=== PATIENT | female | born 2000 | race African-American/Black ===

== ENCOUNTER 2023-02-07 01:20 | Emergency (ER) | payer SELFPAY ==
[~2023-02-07] VITALS: Ht 165.1 cm; Wt 132.5 kg
[2023-02-07 01:37] VITALS: BP 142/74; TEMP 98.4
[2023-02-07] MEDS ORDERED: IPRATROPIUM BROMIDE (0.02%) 0.5MG/2.5ML NEB HHN STA (02:49)
[2023-02-07] MEDS ORDERED: METHYLPREDNISOLONE SOD SUCC 125MG/2ML (ACT-O-VIAL) IV STA (02:49)
[2023-02-07] MEDS ORDERED: ALBUTEROL (0.083%) 2.5MG/3ML NEB HHN STA (02:49)
[2023-02-07 02:55] VITALS: PULSE 96; RESP 18; O2SAT 96
[2023-02-07 03:22] LABS: BASOPHILS % 0.4 % (0.0-2.0); DIFFERENTIAL COMMENT 0; EOSINOPHILS % 6.5 % (0.0-5.0); HEMATOCRIT. 32.7 % (36.0-48.0); HEMOGLOBIN. 9.9 g/dL (12.0-16.0); LYMPHOCYTES % 17.6 % (20.0-50.0); MEAN CORPUSCULAR HEMOGLOBIN 22.6 pg (28.0-32.0); MEAN CORPUSCULAR HGB CONC 30.3 g/dL (31.0-37.0); MEAN CORPUSCULAR VOLUME 74.3 fL (81.0-99.0); MEAN PLATELET VOLUME 7.8 fl (7.4-10.4); MONOCYTES % 7.1 % (2.0-8.0); NEUTROPHILS % 68.4 % (40.0-76.0); PLATELET 430 x1000/uL (130-400); RED CELL DISTRIBUTION WIDTH 18.9 % (11.6-14.6); WHITE BLOOD COUNT 8.9 x1000/uL (4.5-11.0)
[2023-02-07 03:31] LABS: CHLORIDE 107 mEq/L (98-107); INDEX HEMOLYSI 1 (1-3); INDEX ICTERIC 1 (1-4); INDEX LIPEMIC 1 (1-3); POTASSIUM 3.8 mEq/L (3.5-5.1); SODIUM 137 mEq/L (136-145)
[2023-02-07 03:40] LABS: ALANINE AMINOTRANSFERASE 21 IU/L (13-61); ALBUMIN 3.7 g/dL (3.4-5.0); ASPARTATE AMINOTRANSFERASE 14 IU/L (15-37); BILIRUBIN TOTAL 0.3 mg/dL (0.1-1.0); CARBON DIOXIDE 26 mEq/L (21-32); CREATININE 0.7 mg/dL (0.6-1.3); GLUCOSE 104 mg/dL (70-105); NT PRO B-TYPE NATRIURETIC PEP 7 pg/mL (5-125); PROTEIN TOTAL 8.4 g/dL (6.0-8.3); UREA NITROGEN BLOOD 4 mg/dL (7-21)
== END 2023-02-07 06:23 | disposition left against medical advice (07) ==
LOC: ER 01:20
DX: R06.02 Shortness of breath (principal)
CPT/HCPCS: 94640; 80053; 83880; 85025; 36415; 71045; 93005; 96374; 99285; Z7610 ×3; J2930